=== PATIENT | female | born 2000 | race African-American/Black ===

== ENCOUNTER → 2018-07-29 12:47 | Outpatient (CLI) | payer BC ==
--- NOTE | 2018-08-04 13:33 | EC ---
PATIENT:TWILA MURPHY DATE OF SERVICE: 07/29/18 SEX: F MEDICAL RECORD: [id number] DATE OF : [birth year] LOCATION:D[facility] AGE OF PATIENT: 18 ADMISSION DATE: 07/29/18 REFERRING PHYSICIAN: INTERPRETING PHYSICIAN: SANTHOSH KERN MD ECHOCARDIOGRAM REPORT ECHO CHARGES 4 ECHO COMPLETE Date: 07/29/18 CLINICAL DIAGNOSIS: PATRICIO/MURMUR/ABNORMAL EKG ECHOCARDIOGRAPHIC MEASUREMENTS (adult normal given) AC root (d.<3.7cm) 3.2 cm LV Septum d (<1.2 cm> 1.0 cm Valve Excursion 2.1 cm LV Septum (systole) 1.5 cm Left Atria (s.<4.0cm> 3.8 cm LVPW d(<1.2cm) 1.0 cm RV (d.<2.3cm) 2.5 cm LVPW (sytole) 1.3 cm LV diastole(<5.6CM) 6.2 cm MV E-F(>70mm/sec) cm LV systole 4.8 cm LVOT Diameter 2.2 cm MV exc.(>10mm) cm Est.ejection fraction (50-75%) % DOPPLER: LVIT cm/sec A 45.0 cm/sec E 78.0 cm/sec LA cm/sec RVSP 25.0 mmHg LVOT 55.0 cm/sec AOP1/2T m/s Asc. Ao 123 cm/sec RVOT 57.0 cm/sec RA cm/sec PA 920 cm/sec AV Gradient Peak 6.0 mmHg AV Mean 3.4 mmHg AV Area 1.9 cm MV Gradient Peak 3.4 mmHg MV Mean 1.2 mmHg MV Area cm COMMENTS: OP - HC Rug Shampooer: 1 ANNE MACARIO Hasher Machine Operator: 3 Dr. Portillo TAPE# PACS Pericardial Effusion N DATE OF SERVICE: Somewhat technically difficult study due to the patient's underlying body habitus includes 2D, color flow, spectral Doppler, and M-Mode. LVH is present. LV internal dimensions dilated at 6.2 cm. LV appears to be normal with normal wall motion, normal systolic function. EF greater than or equal to 55%. Aortic valve is tricuspid. No evidence of stenosis by Doppler interrogation. Left atrium is normal at 3.8 cm. Mitral valve shows no prolapse. Trace MR. Right-sided chamber size is grossly normal. Trace TR. ECHOCARDIOGRAM REPORT [id number] TWILA MURPHY TRANSINT:[id number] Voice Confirmation ID: [id number] DOCUMENT ID: [id number] SANTHOSH KERN MD at 1333 CC: [id number] DICTATION DATE: 08/02/18 1305 PRIMER INSERTING MACHINE OPERATOR: 08/02/18 1408 [facility] CLI 07/29/18 [id number] [place] [address]
--- NOTE | 2018-08-10 08:49 | ST ---
PATIENT:TWILA MURPHY MEDICAL RECORD: [id number] SEX: F LOCATION:[facility] ORDER #: ADMISSION DATE: 07/29/18 AGE OF PATIENT: 18 REFERRING PHYSICIAN: INTERPRETING PHYSICIAN: SANTHOSH KERN MD DATE OF SERVICE: 07/29/2018 PROCEDURE: Treadmill stress test. Baseline ECG is normal. Exercised for 4 minutes on Clifford protocol. Maximum heart rate 180 beats per minute. No ECG change ischemia. No symptoms of ischemia. Poor exercise tolerance for age. TRANSINT:[id number] Voice Confirmation ID: [id number] DOCUMENT ID: [id number] SANTHOSH KERN MD at 0849 CC: [id number] DICTATION DATE: 08/04/18 1322 TOBACCO GRADER: 08/04/18 1458 [facility] CLI 07/29/18 [id number] [place] [address]
== END | disposition home or self-care (01) ==
LOC: D.HCCARDIO 12:47
PROVIDERS: ATTEND Internal Medicine Interventional Cardiology
DX: R01.1 Cardiac murmur, unspecified (principal)